=== PATIENT | male | born 1960 | race Caucasian/White ===

== ENCOUNTER → 2023-04-08 | Outpatient (CLI) | payer BC | END | disposition home or self-care (01) | LOC: RAD 07:55 | PROVIDERS: ATTEND Internal Medicine | DX: M54.50 Low back pain, unspecified (principal) ==

== ENCOUNTER 2024-07-05 13:51 | Outpatient (CLI) | payer BC | END 2024-07-05 13:55 | disposition home or self-care (01) | LOC: RAD 13:51 | PROVIDERS: ATTEND Orthopaedic Surgery | DX: M25.562 Pain in left knee (principal) ==

== ENCOUNTER 2024-08-05 10:00 | Outpatient (CLI) | payer BC | END 2024-08-05 10:02 | disposition home or self-care (01) | LOC: RAD 10:00 | PROVIDERS: ATTEND Orthopaedic Surgery | DX: M25.552 Pain in left hip (principal); M54.50 Low back pain, unspecified ==

== ENCOUNTER 2024-10-09 10:23 | Outpatient (CLI) | payer BC | END 2024-10-09 10:24 | disposition home or self-care (01) | LOC: NUCLEAR 10:23 | PROVIDERS: ATTEND Orthopaedic Surgery | DX: M81.0 Age-related osteoporosis without current pathological fracture (principal) ==

== ENCOUNTER 2024-10-09 11:03 | Outpatient (CLI) | payer BC | END 2024-10-09 11:06 | disposition home or self-care (01) | LOC: LAB 11:03 | PROVIDERS: ATTEND Orthopaedic Surgery | DX: E55.9 Vitamin D deficiency, unspecified (principal); M85.9 Disorder of bone density and structure, unspecified; E56.1 Deficiency of vitamin K ==

== ENCOUNTER 2024-10-28 10:00 | Emergency (ER) | payer BC ==
[~2024-10-28] VITALS: Ht 167.6 cm; Wt 70.8 kg
== END 2024-10-28 12:38 | disposition home or self-care (01) ==
LOC: ER 10:00
DX: H61.23 Impacted cerumen, bilateral (principal); Z88.0 Allergy status to penicillin

== ENCOUNTER 2025-01-02 11:02 | Outpatient (CLI) | payer BC | END 2025-01-02 11:08 | disposition home or self-care (01) | LOC: RAD 11:02 | PROVIDERS: ATTEND Orthopaedic Surgery | DX: M25.562 Pain in left knee (principal); M17.12 Unilateral primary osteoarthritis, left knee ==